=== PATIENT | female | born 1980 | race African-American/Black ===

== ENCOUNTER 2017-11-25 16:33 | Emergency (ER) | payer SELFPAY, OTHER ==
[2017-11-25 17:11] LABS: ADD MAN DIFF? NO
[2017-11-25 17:20] LABS: WHITE BLOOD COUNT 2.8 10^3/ul (4.8-10.8)
[2017-11-25 17:20] LABS: BASOPHILS % 0.4 % (0.0-2.0); EOSINOPHILS % 1.4 % (0.0-7.0); HEMATOCRIT 32.7 % (37.0-47.0); HEMOGLOBIN 9.7 g/dl (12.0-16.0); LYMPHOCYTES # 0.9 10^3/ul (0.8-2.9); LYMPHOCYTES % 32.1 % (15.0-51.0); MEAN CORPUSCULAR HEMOGLOBIN 24.4 pg (29.0-33.0); MEAN CORPUSCULAR HGB CONC 29.7 g/dl (32.0-37.0); MEAN CORPUSCULAR VOLUME 82.4 fl (82.0-101.0); MEAN PLATELET VOLUME 10.2 fl (7.4-10.4); MONOCYTE # 0.2 10^3/ul (0.3-0.9); MONOCYTES % 7.9 % (0.0-11.0); NEUTROPHIL # 1.6 10^3/ul (1.6-7.5); NEUTROPHILS % 58.2 % (39.0-77.0); PLATELET COUNT 202 10^3/UL (140-415); RED BLOOD COUNT 3.97 10^6/ul (4.20-5.40); RED CELL DISTRIBUTION WIDTH 15.4 % (11.5-14.5); RETICULOCYTE COUNT # 0.072 X10^6 (0.020-0.110); RETICULOCYTE COUNT % 1.8 % (0.5-1.5); RETICULOCYTE RBC 3.97
[2017-11-25] MEDS: DIPHENHYDRAMINE 50 MG INJ IM (17:27)
[2017-11-25] MEDS: HYDROmorphONE 2 MG/ML SYG IM ×2 (17:27→18:40)
[2017-11-25] MEDS: LIDOCAINE 1% (MDV) 20 ML INJ INJ (17:44)
[2017-11-25 17:47] LABS: ALANINE AMINOTRANSFERASE 15 IU/L (13-69); ALBUMIN 3.5 g/dl (3.3-4.9); ALBUMIN/GLOBULIN RATIO 0.66; ALKALINE PHOSPHATASE 146 IU/L (42-121); ANION GAP 16 (8-16); ASPARTATE AMINO TRANSFERASE 23 IU/L (15-46); BILIRUBIN,INDIRECT 0.2 mg/dl (0-1.1); BILIRUBIN,TOTAL 0.2 mg/dl (0.2-1.3); BLOOD UREA NITROGEN 18 mg/dl (7-20); CALCIUM 8.9 mg/dl (8.4-10.2); CARBON DIOXIDE 24 mmol/L (21-31); CHLORIDE 97 mmol/L (97-110); CREATININE 1.03 mg/dl (0.44-1.00); POTASSIUM 4.1 mmol/L (3.5-5.1); SODIUM 133 mmol/L (135-144); TOTAL PROTEIN 8.8 g/dl (6.1-8.1)
[2017-11-25 17:49] LABS: AMPHETAMINE/METHAMPHETAMINE Negative (NEGATIVE); BARBITURATES Negative (NEGATIVE); BENZODIAZEPINES Negative (NEGATIVE); CANNABINOIDS Negative (NEGATIVE); COCAINE Negative (NEGATIVE); OPIATES Positive (NEGATIVE)
[2017-11-25] MEDS: LIDOCAINE 1% (MDV) 10 ML INJ INJ (17:53)
[2017-11-25 18:10] LABS: GLUCOSE 649 mg/dl (70-220)
[2017-11-25] MEDS: INSULIN LISPRO 100 UNIT/ML VIAL SC (18:42)
[2017-11-25] MEDS: CEPHALEXIN 500 MG CAP PO (18:52)
[2017-11-25] MEDS ORDERED: CEPHALEXIN 500 MG CAP PO (19:00)
== END 2017-11-25 19:45 | disposition left against medical advice (07) ==
LOC: E/R 19:45
DX: L02.413 Cutaneous abscess of right upper limb (principal); D57.00 Hb-SS disease with crisis, unspecified; R06.00 Dyspnea, unspecified; Z79.01 Long term (current) use of anticoagulants
CPT/HCPCS: 10060; 71045; 80053; 80307; 81025; 85025; 85045; 96372; 99284-25